=== PATIENT | female | born 1975 | race African-American/Black ===

== ENCOUNTER → 2017-10-11 | Outpatient (CLI) | payer BC ==
[~2017-10-11] MED LIST: GLUCOPHAGE XR750 MG PO; HYDROCHLOROTHIA25 M2 PO; HYDROCODONE-AP1 EAC6 PO; NEURONTIN 300300 M1; ZOCOR40 MG
== END ==
LOC: RAD 15:26
DX: M47.26 Other spondylosis with radiculopathy, lumbar region (principal); M79.605 Pain in left leg; M79.604 Pain in right leg